=== PATIENT | female | born 1950 | race Caucasian/White ===

== ENCOUNTER 2019-10-24 15:01 | Emergency (ER) | payer MEDICARE, BC ==
--- NOTE | 2019-10-24 16:28 | EDM.PDOC ---
ED HPI GENERAL MEDICAL PROBLEM - General Chief Complaint: Head Injury Stated Complaint: FELL Time Seen by Provider: 10/24/19 15:35 Source of Information: Reports: Patient, Family History Limitations: Reports: No Limitations - History of Present Illness INITIAL COMMENTS - FREE TEXT/NARRATIVE: Patient is a 69-year-old female with a history of obesity presenting with a chief complaint of head injury. Patient states about 2 hours ago she was walking in the parking lot when an uneven piece of pavement caused her to trip, twist her ankle and fall. Patient states she fell and struck her head on the ground. Patient denies loss of consciousness. Patient reports laceration to the forehead. Patient denies any severe headache, nausea, vomiting, blurry vision. Patient has no neck pain. Patient additionally reports being ambulatory after the scene with complaining of left foot pain. Patient denies any numbness or tingling. Patient is not taking any blood thinners or anticoagulation. In addition to that documented in the HPI above, the additional ROS was obtained : Constitutional: Denies fevers or chills Eyes: Denies vision changes ENMT: Denies sore throat CV: Denies chest pain Resp: Denies SOB GI: Denies vomiting or diarrhea : Denies painful urination MSK: Per HPI Skin: Denies new rashes Neuro: Denies new numbness or tingling or weakness Endocrine: Denies unexpected weight loss Heme: Denies bleeding disorders I have reviewed the triage vital signs Const: Well nourished, well developed, appears stated age Eyes: PERRL, no conjunctival injection. No raccoon eyes Head: Superficial laceration approximately 3 cm to 4 cm on the superior right portion of the forehead. No other evidence of head trauma. HENT: NCAT, Neck supple without meningismus . Superficial abrasion to the bridge of the nose with minimal tenderness. No septal hematoma noted. CV: RRR, Warm, well-perfused extremities RESP: CTAB, Unlabored respiratory effort GI: soft, non-tender, non-distended, no masses MSK: No posterior ankle tenderness. Patient does have fifth metatarsal tenderness with minimal swelling. No gross deformities appreciated Skin: Warm, dry. No rashes Neuro: Alert, carburetor rebuilder II-XII grossly intact. Sensation and motor function of extremities grossly intact. Psych: Appropriate mood and affect Assessment and plan: Patient is a 69-year-old female with a trip and fall. Patient has a nondisplaced fracture of her third metatarsal which is a stable injury. Patient will be given a hard soled walking shoe and instructions for weightbearing as tolerated. Patient will be also given a cane to help with ambulation given that she is overweight. Patient had no evidence of intracranial injury and no signs of a basilar skull fracture on exam. There is a simple laceration on the forehead which was repaired with 3 sutures. Patient given strict return precautions. All questions addressed and answered. Patient agrees with plan. head Pain Score (Numeric/FACES): 7 - Related Data Allergies Allergy/AdvReac Type Severity Reaction Status Date / Time No Known Allergies Allergy Verified 10/24/19 15:22 Home Meds: Home Meds Atenolol [Tenormin] 50 mg PO DAILY 10/24/19 [History] HCTZ/Triamterene [Dyazide 25-37.5 MG] 1 dose PO DAILY 10/24/19 [History] oxyCODONE HCl/Acetaminophen [Percocet 5-325 mg Tablet] 1 each PO Q8H PRN #12 tablet 10/24/19 [Rx] Past Medical History HEENT History: Reports: Hard of Hearing Cardiovascular History: Reports: Hypertension Respiratory History: Reports: None Gastrointestinal History: Reports: GERD Genitourinary History: Reports: Renal Calculus RET[employer]ANT History: Reports: None Musculoskeletal History: Reports: Arthritis Neurological History: Reports: None Psychiatric History: Reports: None Endocrine/Metabolic History: Reports: Osteopenia Hematologic History: Reports: None Immunologic History: Reports: None Oncologic (Cancer) History: Reports: None Dermatologic History: Reports: None - Infectious Disease History Infectious Disease History: Reports: Measles, Mumps, Rubella - Past Surgical History Head Surgeries/Procedures: Reports: None HEENT Surgical History: Reports: None Cardiovascular Surgical History: Reports: None Respiratory Surgical History: Reports: None GI Surgical History: Reports: None Female Surgical History: Reports: Hysterectomy Endocrine Surgical History: Reports: None Neurological Surgical History: Reports: None Musculoskeletal Surgical History: Reports: None Oncologic Surgical History: Reports: None Dermatological Surgical History: Reports: None Social & Family History - Family History Family Medical History: Noncontributory - Tobacco Use Smoking Status *Q: Never Smoker Second Hand Smoke Exposure: No - Caffeine Use Caffeine Use: Reports: None - Recreational Drug Use Recreational Drug Use: No ED ROS GENERAL - Review of Systems Review Of Systems: See Below ED EXAM, HEAD INJURY - Physical Exam Exam: See Below Course - Vital Signs Last Recorded V/S: Last Vital Signs Temp 35.6 C 10/24/19 15:24 Pulse 76 10/24/19 18:09 Resp 16 10/24/19 18:09 BP 176/86 H 10/24/19 18:09 Pulse Ox 97 10/24/19 18:09 - Orders/Labs/Meds Meds: Medications Discontinued Medications Generic Name Dose Route Start Last Admin Trade Name Freq PRN Reason Stop Dose Admin Lidocaine/Epinephrine 10 ml 10/24/19 16:33 10/24/19 16:50 Xylocaine 1% With Epinephrine 1:100,000 INJECT 10/24/19 16:34 Not Given ONETIME ONE Lidocaine/Epinephrine 20 ml 10/24/19 16:50 10/24/19 16:53 Xylocaine 1% With Epinephrine 1:100,000 INJECT 10/24/19 16:51 20 ml ONETIME ONE Administration Oxycodone/Acetaminophen 2 tab 10/24/19 18:04 Percocet 325-5 Mg PO 10/24/19 18:05 ONETIME ONE Departure - Departure Time of Disposition: 17:55 Disposition: Home, Self-Care 01 Clinical Impression: Metatarsal bone fracture - Discharge Information Prescriptions: oxyCODONE HCl/Acetaminophen [Percocet 5-325 mg Tablet] 1 each PO Q8H PRN #12 tablet PRN Reason: Breakthrough Pain Instructions: Head Injury, Adult, Metatarsal Fracture Referrals: PCP,Unknown [Primary Care Provider] - Forms: ED Department Discharge Additional Instructions: The following information is given to patients seen in the emergency department who are being discharged to home. This information is to outline your options for follow-up care. We provide all patients seen in our emergency department with a follow-up referral. The need for follow-up, as well as the timing and circumstances, are variable depending upon the specifics of your emergency department visit. If you don't have a primary care physician on staff, we will provide you with a referral. We always advise you to contact your personal physician following an emergency department visit to inform them of the circumstance of the visit and for follow-up with them and/or the need for any referrals to a consulting specialist. The emergency department will also refer you to a specialist when appropriate. This referral assures that you have the opportunity for follow-up care with a specialist. All of these measure are taken in an effort to provide you with optimal care, which includes your follow-up. Under all circumstances we always encourage you to contact your private physician who remains a resource for coordinating your care. When calling for follow-up care, please make the office aware that this follow-up is from your recent emergency room visit. If for any reason you are refused follow-up, please contact the [facility] Emergency Department at and asked to speak to the emergency department charge nurse. Sepsis Event Note - Evaluation Sepsis Screening Result: No Definite Risk - Focused Exam Date Exam was Performed: 10/25/19 Time Exam was Performed: 07:16
[2019-10-24] MEDS ORDERED: Lidocaine 1% with EPINEPHrine 1:100,000 10 ML MDV INJECT ONE (16:33)
[2019-10-24] MEDS ORDERED: Lidocaine 1% with EPINEPHrine 1:100,000 20 ML MDV INJECT ONE (16:50)
--- NOTE | 2019-10-24 16:50 | CT ---
Head CT Technique: Multiple axial sections through the brain were obtained. Intravenous contrast was not utilized. Comparison: No prior intracranial imaging is available. Findings: Ventricles along with basal cisterns and sulci over the convexities are within normal limits for the patient's age. No abnormal parenchymal densities are seen. No evidence of intracranial hemorrhage. No midline shift or mass effect is seen. Slight soft tissue swelling is noted within the right frontal scalp. Bone window settings were reviewed. No acute calvarial abnormality is seen. Mild mucosal thickening is noted within the right maxillary sinus. Possible air-fluid level is seen within the right maxillary sinus and difficult to exclude mild sinusitis. Mastoid sinuses are clear. Impression: 1. Right maxillary sinus finding as noted above. Difficult to exclude mild sinusitis. 2. Mild soft tissue swelling within the right frontal scalp. 3. No acute intracranial abnormality is appreciated. Diagnostic code #3 This report was dictated in [place] Standard Time
--- NOTE | 2019-10-24 16:50 | CR ---
Left foot: 3 views left foot were obtained. Comparison: No previous left foot study. Large spur and calcification is noted within the distal Achilles tendon at the attachment to the calcaneus. Minimal plantar spur is seen. Mild joint space narrowing is noted within the 1st MTP joint. Findings suspicious for fracture involving the base of the 3rd metatarsal which is seen on only one view. Mild joint space narrowing is noted within the tarsometatarsal joints. Impression: 1. Findings suspicious for nondisplaced fracture involving the base of the 3rd metatarsal. 2. Mild degenerative change as noted above as well as calcaneal spurs. Diagnostic code #3 This report was dictated in [place] Standard Time
[2019-10-24] MEDS ORDERED: Acetaminophen/oxyCODONE 325-5 MG Tab PO ONE (18:04)
== END 2019-10-24 18:10 | disposition home or self-care (01) ==
LOC: MW.ED 15:01
DX: S92.335A Nondisplaced fracture of third metatarsal bone, left foot, initial encounter for closed fracture (principal); S01.81XA Laceration without foreign body of other part of head, initial encounter; I10 Essential (primary) hypertension; K21.9 Gastro-esophageal reflux disease without esophagitis; E66.9 Obesity, unspecified; Z79.899 Other long term (current) drug therapy; W01.198A Fall on same level from slipping, tripping and stumbling with subsequent striking against other object, initial encounter; Y92.481 Parking lot as the place of occurrence of the external cause
CPT/HCPCS: 12013; 70450; 73630; 99284; A9270